=== PATIENT | female | born 1980 | race Caucasian/White ===

== ENCOUNTER 2017-01-30 14:21 | Inpatient (IN) | payer BC ==
[2017-01-30] VITALS (32 sets, daily range): BP systolic 105–150; BP diastolic 58–101; PULSE 76–131; TEMP 98.3–98.6
[~2017-01-30] VITALS: Ht 167.6 cm; Wt 110.5 kg
[~2017-01-30 14:21] MED LIST: PRENATAL1 TA7 PO
[2017-01-30 15:58] LABS: BASO % 0.2 % (0.0-2.0); EOS # 0.1 (0.0-0.7); EOS % 0.7 % (0-4.0); GRAN # 6.7 (1.4-6.5); GRAN % 73.2 % (42.2-75.2); HEMATOCRIT 37.4 % (37.0-47.0); HEMOGLOBIN 12.2 g/dl (12.5-16.0); LYMPH # 1.8 (1.2-3.4); LYMPH % 19.5 % (20.0-51.0); MEAN CELL VOLUME 84 fl (80.0-100.0); MEAN CORPUSCULAR HEMOGLOBIN 27 pg (27.0-31.0); MEAN CORPUSCULAR HGB CONC 33 g/dl (33.0-37.0); MEAN PLATELET VOLUME 10.8 fl (7.4-10.4); MONO # 0.6 (0.1-0.6); MONO % 6.1 % (1.7-9.3); PLATELET COUNT 273 K/mm3 (130-400); RED BLOOD COUNT 4.48 M/mm3 (4.10-5.30); WHITE BLOOD COUNT 9.2 K/mm3 (4.8-10.8)
[2017-01-31] VITALS (10 sets, daily range): BP systolic 119–148; BP diastolic 68–76; PULSE 89–116; TEMP 97.4–99
[2017-01-31] MEDS ORDERED: IBU400 MG PO (09:59)
[2017-01-31] MEDS ORDERED: PERCOCET 325 MG1 TA2 PO (10:00)
[2017-02-01 07:36] VITALS: BP 136/72; PULSE 85; TEMP 98.2
== END 2017-02-01 13:42 | disposition home or self-care (01) | DRG 775 ==
LOC: LDRO 14:21 → LDR 15:00 → OB 15:00 → EDSTATUS 02-07 11:20 → LDR 02-07 14:13
PROVIDERS: Obstetrics & Gynecology
PROC: 10E0XZZ Delivery of Products of Conception, External Approach (ICD-10-PCS; principal; 2017-01-30)
PROC: 0KQM0ZZ Repair Perineum Muscle, Open Approach (ICD-10-PCS; 2017-01-30)
DX: O99.824 Streptococcus B carrier state complicating childbirth (principal); O70.1 Second degree perineal laceration during delivery; O69.81X0 Labor and delivery complicated by cord around neck, without compression, not applicable or unspecified; Z3A.38 38 weeks gestation of pregnancy; Z37.0 Single live birth
CPT/HCPCS: J2400; J2540; J2590; J7060; J7120

== ENCOUNTER → 2020-02-10 | Outpatient (CLI) | payer BC ==
[~2020-02-10] MED LIST changes: +IBU400 MG PO; +PERCOCET 325 MG1 TA2 PO
== END ==
LOC: COL.RAD 09:13
DX: K80.20 Calculus of gallbladder without cholecystitis without obstruction (principal)

== ENCOUNTER → 2020-05-02 | Outpatient (CLI) | payer BC | LOC: MC.RAD 08:37 | DX: Z12.31 Encounter for screening mammogram for malignant neoplasm of breast (principal) ==